=== PATIENT | male | born 1980 | race African-American/Black ===

== ENCOUNTER 2020-06-07 17:51 | Emergency (ER) | payer SELFPAY ==
[2020-06-07 18:09] VITALS: TEMP 98.3; BMI 19.8
[2020-06-07] MEDS ORDERED: morphine SULFATE 4 MG/ML VIAL IVPUSH ONE (18:25)
[2020-06-07] MEDS ORDERED: morphine CARPU-JECT 4 MG/1 ML DISP.SYRIN IVPUSH ONE (18:25)
[2020-06-07] MEDS ORDERED: ONDANSETRON 4 MG/2 ML VIAL IVPUSH ONE ×2 (18:25→20:51)
[2020-06-07] MEDS ORDERED: morphine SULFATE 4 MG/ML VIAL ONE (18:32)
--- NOTE | 2020-06-07 18:36 | PDOC ---
History of Present Illness - General Chief Complaint: Pain Stated Complaint: ABD PAIN Time Seen by Provider: 06/07/20 18:11 History Source: Patient Exam Limitations: No Limitations - History of Present Illness Initial Comments: 06/07/20 18:32 4-year-old male past medical history asthma presents the ED with 1 week of right upper quadrant pain. Patient states that he was admitted to [facility] for acute cholecystitis but decided to leave AGAINST MEDICAL ADVICE because he felt like he was not getting good care. Patient states that since he left the hospital his right upper quadrant pain worsened and is now experiencing subjective fever and chills. Patient is also having episodes of nonbloody vomiting with continued nausea. No history abdominal surgeries pt otherwise denies: syncope, lightheadedness, dizziness, headaches, neck pain, chest pain, shortness of breath, palpitations, back pain, diarrhea, constipation. Past History - Medical History Allergies/Adverse Reactions: Allergies Allergy/AdvReac Type Severity Reaction Status Date / Time No Known Allergies Allergy Verified 06/07/20 18:39 - Surgical History Abdominal Surgery: Yes - Reproductive History Testicular Torsion: Yes - Immunization History Immunization Up to Date: (unknown) - Psycho-Social/Smoking History Smoking Status: Yes Smoking History: Current every day smoker Have you smoked in the past 12 months: Yes Number of Cigarettes Smoked Daily: 3 Information on smoking cessation initiated: Yes - Substance Abuse Hx (Audit-C & DAST Scrn) How often the patient has a drink containing alcohol: 2-3 times / week Number of drinks the patient has on a typical day: 3 or 4 How often the patient has six or more drinks on one occasion: Less than monthly Score: In Men: 4 or > Positive; In Women: 3 or > Positive: 5 Screen Result (Pos requires Nsg. Audit-10AR): Positive In the last yr the pt used illegal drug/Rx for NonMed reason: Yes Score: Yes response is considered Positive: 1 Screen Result (Positive result requires Nsg. DAST-10): Positive *Physical Exam - Vital Signs Last Vital Signs Temp Pulse Resp BP Pulse Ox 98.3 F 69 20 114/90 98 06/07/20 17:58 06/07/20 17:58 06/07/20 17:58 06/07/20 17:58 06/07/20 17:58 - Physical Exam 06/07/20 18:33 Gen: AAOx 3, no acute distress, comfortable, no signs of respiratory distress HENT: atraumatic, normocephalic with no laceration or contusion. Nasal mucosa without erythema. Oropharynx without erythema or exudates. Mucous membranes moist. EYES: PERRL, EOM intact, conjunctiva pink NECK: supple; trachea midline; no JVD, no lymphadenopathy, or thyromegaly CV: RRR no murmurs, gallops, or rubs. CHEST: CTA b/l no wheezing, rales or rhonchi ABD: +BS/ND. TTP in RUQ w/ + [place] sign and guarding; rets of abdomen no ttp soft, no rebound, no guarding EXTREMITY: no cyanosis or erythema. 2+ dorsalis pedis, posterior tibial, and radial pulse. No pedal edema; no calf swelling or tenderness SKIN: no rash, warm and dry, no diaphoresis HEME: no purpura or ecchymosis NEURO: normal speech, CN II-XII intact, sensation intact, normal gait, no cerebellar deficits MS: 5/5 strength in all extremities, FROM intact in all extremities. ED Treatment Course - LABORATORY CBC & Chemistry Diagram: 06/07/20 18:22 06/07/20 18:22 Medical Decision Making - Medical Decision Making 06/07/20 18:35 40-year-old male with high suspicion of acute cholecystitis Vital signs stable, afebrile Labs ultrasound morphine and Zofran Will reassess based on result Labs all WNL UA Negative for UTI Due to shift change pt signed out Pending US read and further management Discharge - Discharge Information Problems reviewed: Yes Clinical Impression/Diagnosis: Abdominal pain Qualifiers: Abdominal location: right upper quadrant Qualified Code(s): R10.11 - Right upper quadrant pain - Follow up/Referral - Patient Discharge Instructions - Post Discharge Activity
[2020-06-07 18:51] LABS: EOS % 0.6 % (0-4.5); HEMATOCRIT 41.7 % (35.4-49); HEMOGLOBIN 14.2 GM/dL (11.7-16.9); LYMPH % 36.6 % (8-40); MCH 31.5 pg (25.7-33.7); MCHC 34.2 g/dl (32.0-35.9); MEAN CELL VOLUME 92.2 fl (80-96); MEAN PLT VOLUME 7.1 fl (7.5-11.1); MONO % 7.1 % (3.8-10.2); NEUT % 54.7 % (42.8-82.8); PLATELET COUNT 343 K/MM3 (134-434); RBC 4.52 M/mm3 (4.00-5.60); RDW 13.4 % (11.9-15.9); WHITE BLOOD COUNT 4.5 K/mm3 (4.0-10.0)
[2020-06-07 18:57] LABS: INR 0.92 (0.83-1.09); PROTHROMBIN TIME (PATIENT) 10.8 SEC (9.7-13.0)
[2020-06-07 19:00] LABS: ACTIVATED PTT 33.3 SECONDS (25.2-36.5)
[2020-06-07 19:20] LABS: ALBUMIN 4.4 g/dl (3.4-5.0); BLOOD UREA NITROGEN 21.6 mg/dL (7-18); CALCIUM 9.8 mg/dL (8.5-10.1); CREATININE 0.9 mg/dL (0.55-1.3)
[2020-06-07 19:39] LABS: URINE APPEARANCE Clear; URINE BILIRUBIN 1+ (NEGATIVE); URINE COLOR Yellow; URINE GLUCOSE (UA) Negative (NEGATIVE); URINE KETONE 4+ (NEGATIVE); URINE LEUK ESTERASE Negative (NEGATIVE); URINE NITRITE Negative (NEGATIVE); URINE PROTEIN 1+ (NEGATIVE)
--- NOTE | 2020-06-07 20:39 | PDOC ---
History of Present Illness - General Chief Complaint: Pain Stated Complaint: ABD PAIN Time Seen by Provider: 06/07/20 18:11 Past History - Medical History Allergies/Adverse Reactions: Allergies Allergy/AdvReac Type Severity Reaction Status Date / Time No Known Allergies Allergy Verified 06/07/20 18:39 - Surgical History Abdominal Surgery: Yes - Reproductive History Testicular Torsion: Yes - Immunization History Immunization Up to Date: (unknown) - Psycho-Social/Smoking History Smoking Status: Yes Smoking History: Current every day smoker Have you smoked in the past 12 months: Yes Number of Cigarettes Smoked Daily: 3 Information on smoking cessation initiated: Yes - Substance Abuse Hx (Audit-C & DAST Scrn) How often the patient has a drink containing alcohol: 2-3 times / week Number of drinks the patient has on a typical day: 3 or 4 How often the patient has six or more drinks on one occasion: Less than monthly Score: In Men: 4 or > Positive; In Women: 3 or > Positive: 5 Screen Result (Pos requires Nsg. Audit-10AR): Positive In the last yr the pt used illegal drug/Rx for NonMed reason: Yes Score: Yes response is considered Positive: 1 Screen Result (Positive result requires Nsg. DAST-10): Positive *Physical Exam - Vital Signs Last Vital Signs Temp Pulse Resp BP Pulse Ox 98.3 F 74 20 114/90 99 06/07/20 17:58 06/07/20 19:47 06/07/20 17:58 06/07/20 17:58 06/07/20 19:47 ED Treatment Course - LABORATORY CBC & Chemistry Diagram: 06/07/20 18:22 06/07/20 18:22 - ADDITIONAL ORDERS Additional order review: Laboratory Results 06/07/20 06/07/20 06/07/20 18:22 18:22 18:22 WBC 4.5 RBC 4.52 Hgb 14.2 Hct 41.7 MCV 92.2 MCH 31.5 MCHC 34.2 RDW 13.4 Plt Count 343 D MPV 7.1 L Absolute Neuts (auto) 2.5 Neutrophils % 54.7 D Lymphocytes % 36.6 D Monocytes % 7.1 Eosinophils % 0.6 Basophils % 1.0 Nucleated RBC % 0 PT with INR INR PTT (Actin FS) Sodium 135 L Potassium 4.0 Chloride 97 L Carbon Dioxide 26 Anion Gap 13 BUN 21.6 H Creatinine 0.9 Est GFR (CKD-EPI)AfAm 123.39 Est GFR (CKD-EPI)NonAf 106.46 Random Glucose 74 Calcium 9.8 Total Bilirubin 1.0 AST 20 ALT 19 Alkaline Phosphatase 80 Total Protein 8.0 Albumin 4.4 Lipase 199 Urine Color Yellow Urine Appearance Clear Urine pH 6.0 Ur Specific [place] >= 1.030 Urine Protein 1+ H Urine Glucose (UA) Negative Urine Ketones 4+ H Urine Blood Negative Urine Nitrite Negative Urine Bilirubin 1+ H Urine Urobilinogen 2.0 Ur Leukocyte Esterase Negative 06/07/20 18:22 WBC RBC Hgb Hct MCV MCH MCHC RDW Plt Count MPV Absolute Neuts (auto) Neutrophils % Lymphocytes % Monocytes % Eosinophils % Basophils % Nucleated RBC % PT with INR 10.80 INR 0.92 PTT (Actin FS) 33.3 Sodium Potassium Chloride Carbon Dioxide Anion Gap BUN Creatinine Est GFR (CKD-EPI)AfAm Est GFR (CKD-EPI)NonAf Random Glucose Calcium Total Bilirubin AST ALT Alkaline Phosphatase Total Protein Albumin Lipase Urine Color Urine Appearance Urine pH Ur Specific [place] Urine Protein Urine Glucose (UA) Urine Ketones Urine Blood Urine Nitrite Urine Bilirubin Urine Urobilinogen Ur Leukocyte Esterase 06/07/20 18:22 RBC 4.52 MCV 92.2 MCHC 34.2 RDW 13.4 MPV 7.1 L Neutrophils % 54.7 D Lymphocytes % 36.6 D Monocytes % 7.1 Eosinophils % 0.6 Basophils % 1.0 - Medications Given in the ED: ED Medications Discontinued Medications Generic Name Dose Route Start Last Admin Trade Name Lina PRN Reason Stop Dose Admin Morphine Sulfate 4 mg 06/07/20 18:25 06/07/20 18:33 Morphine Injection - IVPUSH 06/07/20 18:26 4 mg ONCE ONE Administration Morphine Sulfate 4 mg 06/07/20 18:25 06/07/20 19:15 Morphine Sulfate IVPUSH 06/07/20 18:26 Not Given ONCE ONE Ondansetron HCl 4 mg 06/07/20 18:25 06/07/20 18:33 Zofran Injection IVPUSH 06/07/20 18:26 4 mg ONCE ONE Administration Medical Decision Making - Medical Decision Making 06/07/20 20:33 Discharge - Discharge Information Clinical Impression/Diagnosis: Abdominal pain Qualifiers: Abdominal location: right upper quadrant Qualified Code(s): R10.11 - Right upper quadrant pain - Follow up/Referral - Patient Discharge Instructions - Post Discharge Activity
--- NOTE | 2020-06-07 20:46 | PDOC ---
*Physical Exam - Vital Signs Last Vital Signs Temp Pulse Resp BP Pulse Ox 98.3 F 74 20 114/90 99 06/07/20 17:58 06/07/20 19:47 06/07/20 17:58 06/07/20 17:58 06/07/20 19:47 - Physical Exam 06/07/20 20:44 tolerating po in ED General Appearance: Yes: Appropriately Dressed. No: Apparent Distress HEENT: positive: Normal Voice Neck: positive: Supple Respiratory/Chest: negative: Respiratory Distress Gastrointestinal/Abdominal: positive: Normal Bowel Sounds, Tender (signifiant ttp to epigastrium and RUQ, neg murpheys), Soft. negative: Distended, Guarding, Rebound Musculoskeletal: negative: CVA Tenderness Integumentary: positive: Dry, Warm Neurologic: positive: Fully Oriented, Alert, Normal Mood/Affect ED Treatment Course - LABORATORY CBC & Chemistry Diagram: 06/07/20 18:22 06/07/20 18:22 - ADDITIONAL ORDERS Additional order review: Laboratory Results 06/07/20 06/07/20 06/07/20 18:22 18:22 18:22 PT with INR INR PTT (Actin FS) Sodium 135 L Potassium 4.0 Chloride 97 L Carbon Dioxide 26 Anion Gap 13 BUN 21.6 H Creatinine 0.9 Est GFR (CKD-EPI)AfAm 123.39 Est GFR (CKD-EPI)NonAf 106.46 Random Glucose 74 Calcium 9.8 Total Bilirubin 1.0 AST 20 ALT 19 Alkaline Phosphatase 80 Total Protein 8.0 Albumin 4.4 Lipase 199 Urine Color Yellow Urine Appearance Clear Urine pH 6.0 Ur Specific [place] >= 1.030 Urine Protein 1+ H Urine Glucose (UA) Negative Urine Ketones 4+ H Urine Blood Negative Urine Nitrite Negative Urine Bilirubin 1+ H Urine Urobilinogen 2.0 Ur Leukocyte Esterase Negative Blood Type A POSITIVE Antibody Screen Negative 06/07/20 18:22 PT with INR 10.80 INR 0.92 PTT (Actin FS) 33.3 Sodium Potassium Chloride Carbon Dioxide Anion Gap BUN Creatinine Est GFR (CKD-EPI)AfAm Est GFR (CKD-EPI)NonAf Random Glucose Calcium Total Bilirubin AST ALT Alkaline Phosphatase Total Protein Albumin Lipase Urine Color Urine Appearance Urine pH Ur Specific [place] Urine Protein Urine Glucose (UA) Urine Ketones Urine Blood Urine Nitrite Urine Bilirubin Urine Urobilinogen Ur Leukocyte Esterase Blood Type Antibody Screen 06/07/20 18:22 RBC 4.52 MCV 92.2 MCHC 34.2 RDW 13.4 MPV 7.1 L Neutrophils % 54.7 D Lymphocytes % 36.6 D Monocytes % 7.1 Eosinophils % 0.6 Basophils % 1.0 - Medications Given in the ED: ED Medications Discontinued Medications Generic Name Dose Route Start Last Admin Trade Name Lina PRN Reason Stop Dose Admin Morphine Sulfate 4 mg 06/07/20 18:25 06/07/20 18:33 Morphine Injection - IVPUSH 06/07/20 18:26 4 mg ONCE ONE Administration Morphine Sulfate 4 mg 06/07/20 18:25 06/07/20 19:15 Morphine Sulfate IVPUSH 06/07/20 18:26 Not Given ONCE ONE Ondansetron HCl 4 mg 06/07/20 18:25 06/07/20 18:33 Zofran Injection IVPUSH 06/07/20 18:26 4 mg ONCE ONE Administration Medical Decision Making - Medical Decision Making 06/07/20 20:45 Took sign out from GOPI Rushing at 8pm Pt is a 40 yo M, h/o asthma, here w/ severe upper abd pain. Pt states he was admitted for same last week at [facility] and was dx w/ "a gallbladder infection" and left AMA as unhappy w/ the care per pt. States pain has persisted throughout the week w/ n/v intermittently though is able to silvestre po. No change in BM, f/c see exam Upper abd pain Left AMA last week at [facility] after being admitted for pancreatitis per staff at [facility], not acute yael as pt reported. Per staff pt had admitted to ETOH abuse and is smoker. Of note, lipase 1045 on 05/31 at [facility], pt ama'd on 05/02 Pt stable and in NAD, currently silvestre po but has sig ttp to epigastrium on palpation Since given morphine here Labs unremarkable including lipase of 199 today US pending, will continue to control sxs 06/07/20 20:50 Discussed w/ pt that I contacted staff at [facility] and was able to get collateral information regarding his admission there and correct diagnosis. Despite being given morphine, pt continues to report sig pain and nausea. US still pending but will get CT at this time and continue to manage symptoms 06/07/20 23:00 US normal. Pt signed out to ER resident, Dr Cruz, pending CT read and dispo 06/07/20 23:01 Discharge - Discharge Information Problems reviewed: Yes Clinical Impression/Diagnosis: Epigastric pain Condition: Improved Disposition: HOME - Additional Discharge Information Prescriptions: Famotidine [Pepcid] 20 mg PO BID 7 Days #14 tablet Acetaminophen [Tylenol] 325 mg PO QID #30 capsule Ondansetron [Zofran -] 4 mg PO TID #10 tablet - Follow up/Referral Referrals: [facility] [place] [facility] [place] [Provider Group] Joaquín Brown MD [Staff Physician] - - Patient Discharge Instructions Patient Printed Discharge Instructions: Acute Pancreatitis, Chronic Pancreatitis Additional Instructions: You came to the ED for abdominal pain. This is most likely residual from your pancreatitis. Here at the ED we got labs, chest xray, and abdominal CT scan. The urine showed some ketonuria, which means you may be dehydrated so we gave you fluids. The ot her labs showed no acute abnormalities. The CT scan showed mild dilation of your pancreatic duct. This is not something that needs an emergent MRCP. You do need to follow up with a statistician mathematical who we gave you a referral to. Your work up is not complete without following up with a statistician mathematical. For your pain please continue taking tylenol 325-1000mg every 6 hours but no more than 4000 mg in 24 hours. Also continue taking pepcid 20mg two times a day for nausea. Also for nausea take zofran 4 mg every 8 hours whenever needed for nausea as well. If you have any of the following please return: - unable to eat anything by mouth - fevers or chills - worsening abdominal pain - vomiting a gross amount of blood - unable to make bowel movements. - Post Discharge Activity
[2020-06-07] MEDS ORDERED: ACETAMINOPHEN 1000 MG/100 ML VIAL (NON FORMULARY) IVPB ONE (20:51)
[2020-06-07] MEDS ORDERED: ACETAMINOPHEN INJECTION 100 ML IVPB ONE (21:07)
[2020-06-07] MEDS ORDERED: FAMOTIDINE 20 MG/50 ML IVPB 20 MG/50 ML MG IVPB ONE ×2 (23:43→23:49)
[2020-06-07] MEDS ORDERED: MAG HYDROX/AL HYDROX/SIMETH 30 ML UNIT-DOSE CUP PO ONE (23:43)
[2020-06-07] MEDS ORDERED: MAG HYDROX/AL HYDROX/SIMETH 30 ML UNIT-DOSE CUP ONE (23:49)
[2020-06-07] MEDS ORDERED: SODIUM CHLORIDE 0.9% 500 ML INFUS.BAG IV ONE (23:50)
--- NOTE | 2020-06-07 23:52 | PDOC ---
*Physical Exam - Vital Signs Last Vital Signs Temp Pulse Resp BP Pulse Ox 98.3 F 74 20 114/90 99 06/07/20 17:58 06/07/20 19:47 06/07/20 17:58 06/07/20 17:58 06/07/20 19:47 - Physical Exam 06/08/20 08:21 GENERAL: Awake, alert, and fully oriented, in no acute distress HEAD: No signs of trauma, normocephalic, atraumatic EYES: EOMI, sclera anicteric, conjunctiva clear ENT: Auricles normal inspection, hearing grossly normal, nares patent NECK: Normal ROM, supple, no lymphadenopathy, JVD, or masses LUNGS: No distress, speaks full sentences, clear to auscultation bilaterally HEART: Bradycardic and regular rhythm, normal S1 and S2, no murmurs, rubs or gallops, peripheral pulses normal and equal bilaterally. ABDOMEN: Normoactive bowel sounds in all four quadrants Tenderness and guarding to palpation to all quadrants. EXTREMITIES : Normal inspection, Normal range of motion, no edema. No clubbing or cyanosis. NEUROLOGICAL: Cranial nerves II through XII grossly intact. Normal speech,\ no focal sensorimotor deficits SKIN: Warm, Dry, normal turgor, no rashes or lesions noted ED Treatment Course - LABORATORY CBC & Chemistry Diagram: 06/07/20 18:22 06/07/20 18:22 - ADDITIONAL ORDERS Additional order review: Laboratory Results 06/07/20 06/07/20 06/07/20 18:22 18:22 18:22 PT with INR INR PTT (Actin FS) Sodium 135 L Potassium 4.0 Chloride 97 L Carbon Dioxide 26 Anion Gap 13 BUN 21.6 H Creatinine 0.9 Est GFR (CKD-EPI)AfAm 123.39 Est GFR (CKD-EPI)NonAf 106.46 Random Glucose 74 Calcium 9.8 Total Bilirubin 1.0 AST 20 ALT 19 Alkaline Phosphatase 80 Total Protein 8.0 Albumin 4.4 Lipase 199 Urine Color Yellow Urine Appearance Clear Urine pH 6.0 Ur Specific [place] >= 1.030 Urine Protein 1+ H Urine Glucose (UA) Negative Urine Ketones 4+ H Urine Blood Negative Urine Nitrite Negative Urine Bilirubin 1+ H Urine Urobilinogen 2.0 Ur Leukocyte Esterase Negative Blood Type A POSITIVE Antibody Screen Negative 06/07/20 18:22 PT with INR 10.80 INR 0.92 PTT (Actin FS) 33.3 Sodium Potassium Chloride Carbon Dioxide Anion Gap BUN Creatinine Est GFR (CKD-EPI)AfAm Est GFR (CKD-EPI)NonAf Random Glucose Calcium Total Bilirubin AST ALT Alkaline Phosphatase Total Protein Albumin Lipase Urine Color Urine Appearance Urine pH Ur Specific [place] Urine Protein Urine Glucose (UA) Urine Ketones Urine Blood Urine Nitrite Urine Bilirubin Urine Urobilinogen Ur Leukocyte Esterase Blood Type Antibody Screen 06/07/20 18:22 RBC 4.52 MCV 92.2 MCHC 34.2 RDW 13.4 MPV 7.1 L Neutrophils % 54.7 D Lymphocytes % 36.6 D Monocytes % 7.1 Eosinophils % 0.6 Basophils % 1.0 - RADIOLOGY Radiology Studies Ordered: Category Date Time Status CHEST X-RAY PORTABLE* [RAD] Stat Radiology 06/07/20 23:49 Ordered - Medications Given in the ED: ED Medications Discontinued Medications Generic Name Dose Route Start Last Admin Trade Name Freq PRN Reason Stop Dose Admin Acetaminophen 1,000 mg 06/07/20 20:51 06/07/20 21:42 Ofirmev Injection - IVPB 06/07/20 20:52 1,000 mg ONCE ONE Administration Morphine Sulfate 4 mg 06/07/20 18:25 06/07/20 18:33 Morphine Injection - IVPUSH 06/07/20 18:26 4 mg ONCE ONE Administration Morphine Sulfate 4 mg 06/07/20 18:25 06/07/20 19:15 Morphine Sulfate IVPUSH 06/07/20 18:26 Not Given ONCE ONE Ondansetron HCl 4 mg 06/07/20 18:25 06/07/20 18:33 Zofran Injection IVPUSH 06/07/20 18:26 4 mg ONCE ONE Administration Ondansetron HCl 4 mg 06/07/20 20:51 06/07/20 21:44 Zofran Injection IVPUSH 06/07/20 20:52 4 mg ONCE ONE Administration Medical Decision Making - Medical Decision Making 06/07/20 23:51 40 yo male with pmh asthma, EtOH abuse, and pancreatitis presenting today for abdominal pain. Pt was recently admitted to [facility] last week for pancreatitis and signed out AMA. Pt today received Morphine and acetaminophen for pain. CT scan showed mild dilation of pancreatic duct will need MRCP outpatient. Pt UA showed ketonuria will give 2 L of NS. Pt will also get CXR to rule out CHF. Pt will also be given pepcid for nausea and discharged. 06/08/20 00:16 pt is bradycardic to 44 will get EKG. 06/08/20 01:46 Pt explains he feels alot better and is willing to go home and follow up with GI. Discharge - Discharge Information Problems reviewed: Yes Clinical Impression/Diagnosis: Epigastric pain Condition: Improved Disposition: HOME - Additional Discharge Information Prescriptions: Famotidine [Pepcid] 20 mg PO BID 7 Days #14 tablet Acetaminophen [Tylenol] 325 mg PO QID #30 capsule Ondansetron [Zofran -] 4 mg PO TID #10 tablet - Follow up/Referral Referrals: Joaquín Brown MD [Staff Physician] - [facility] [place] [facility] [place] [Provider Group] - Patient Discharge Instructions Patient Printed Discharge Instructions: Acute Pancreatitis, Chronic Pancreatitis Additional Instructions: You came to the ED for abdominal pain. This is most likely residual from your pancreatitis. Here at the ED we got labs, chest xray, and abdominal CT scan. The urine showed some ketonuria, which means you may be dehydrated so we gave you fluids. The other labs showed no acute abnormalities. The CT scan showed mild dilation of your pancreatic duct. This is not something that needs an emergent MRCP. You do need to follow up with a recreation activities coordinator who we gave you a referral to. Your work up is not complete without following up with a recreation activities coordinator. For your pain please continue taking tylenol 325-1000mg every 6 hours but no more than 4000 mg in 24 hours. Also continue taking pepcid 20mg two times a day for nausea. Also for nausea take zofran 4 mg every 8 hours whenever needed for nausea as well. If you have any of the following please return: - unable to eat anything by mouth - fevers or chills - worsening abdominal pain - vomiting a gross amount of blood - unable to make bowel movements. - Post Discharge Activity
[2020-06-08 00:27] LABS: EPI CELLS 25 /uL (0-25.1); URINE RBC 13 /uL (0-23.9); URINE WBC 48 /uL (0-25.8)
[2020-06-08 00:28] LABS: HYALINE CASTS 3 /uL (0-3.1); URINE BACTERIA 172 /uL (0-1359)
[2020-06-08 00:38] VITALS: BP 120/78
[2020-06-08 04:32] VITALS: PULSE 51
--- NOTE | 2020-06-08 10:48 | EKG ---
Test Reason : Blood Pressure : / mmHG Vent. Rate : 039 BPM Atrial Rate : 039 BPM P-R Int : 162 ms QRS Dur : 090 ms QT Int : 528 ms P-R-T Axes : 062 082 074 degrees QTc Int : 425 ms MARKED SINUS BRADYCARDIA POSSIBLE ANTERIOR INFARCT , AGE UNDETERMINED ABNORMAL ECG NO PREVIOUS ECGS AVAILABLE Confirmed by Janet Gottlieb ([id number]) on 06/08/2020 10:47:57 AM Referred By: Confirmed By:Janet Gottlieb
== END 2020-06-08 04:47 | disposition home or self-care (01) ==
LOC: JER 17:51
PROC: 3E033NZ Introduction of Analgesics, Hypnotics, Sedatives into Peripheral Vein, Percutaneous Approach (ICD-10-PCS; principal; 2020-06-07)
PROC: 3E033GC Introduction of Other Therapeutic Substance into Peripheral Vein, Percutaneous Approach (ICD-10-PCS; 2020-06-07)
PROC: 3E033GC Introduction of Other Therapeutic Substance into Peripheral Vein, Percutaneous Approach (ICD-10-PCS; 2020-06-07)
DX: R10.13 Epigastric pain (principal)
CPT/HCPCS: 36415; 71045-TC-FY; 74177-TC; 76705-TC; 80053; 80074; 81003; 83690; 85025; 85610; 85730; 86850; 86900; 86901; 93005; 93010; 99285-25; J0131